=== PATIENT | female | born 1960 | race Hispanic/Latino ===

== ENCOUNTER → 2023-03-03 | Outpatient (CLI) | payer BC ==
[~2023-03-03] MED LIST: DAPA1TAB5 PO; FENO145T26 PO; GLIM2TAB30 PO; LISI20TA24 PO; METF-446 PO; XOPENEX HFA IH
== END | disposition home or self-care (01) ==
LOC: RAH 10:51
PROVIDERS: ATTEND Family Medicine
DX: M79.605 Pain in left leg (principal)
CPT/HCPCS: 93971